=== PATIENT | female | born 1990 | race Two or more races ===

== ENCOUNTER 2024-01-27 16:09 | Outpatient (CLI) | payer OTHER | END 2024-01-27 16:10 | disposition home or self-care (01) | LOC: PRENATAL 16:09 | PROVIDERS: ATTEND Obstetrics & Gynecology Maternal & Fetal Medicine | DX: O35.9XX0 Maternal care for (suspected) fetal abnormality and damage, unspecified, not applicable or unspecified (principal); O35.3XX0 Maternal care for (suspected) damage to fetus from viral disease in mother, not applicable or unspecified; O44.02 Complete placenta previa NOS or without hemorrhage, second trimester; Z3A.22 22 weeks gestation of pregnancy ==

== ENCOUNTER → 2024-04-01 08:55 | Outpatient (CLI) | payer OTHER | END | disposition home or self-care (01) | LOC: PRENATAL 08:55 | PROVIDERS: ATTEND Obstetrics & Gynecology Maternal & Fetal Medicine | DX: O26.849 Uterine size-date discrepancy, unspecified trimester (principal); O36.8199 Decreased fetal movements, unspecified trimester, other fetus; Z3A.32 32 weeks gestation of pregnancy ==

== ENCOUNTER 2024-05-16 12:52 | Inpatient (IN) | payer OTHER ==
[~2024-05-16] VITALS: Ht 160 cm; Wt 3.2 kg
[2024-05-16 12:30] VITALS: BP 131/79
[2024-05-16] MEDS ORDERED: PRENATAL TABLE1 EAC4 PO (12:55)
[2024-05-16] MEDS ORDERED: RINGERS SOLUTION,LACTATED 1,000 ML IV SCH (13:00)
[2024-05-16 13:18] LABS: PH,URINE 6.5 (5.0-8.0); URINE APPEARANCE Clear; URINE BILIRRUBIN Negative (NEGATIVE); URINE BLOOD Negative; URINE COLOR Yellow; URINE GLUCOSE Negative (NEGATIVE); URINE KETONE 15 (NEGATIVE); URINE LEUKOCYTE Large; URINE NITRATE Negative; URINE PROTEIN 30 (NEGATIVE); URINE UROBILINOGEN 0.2 E.U./dl
[2024-05-16 13:19] LABS: URINE BACTERIA 6774.8 uL (0.0-1933); URINE EPITHELIAL CELLS 60.1 uL (0.0-38.8); URINE RBC 4.4 uL (0.0-20.8); URINE WBC 201.5 uL (0.0-23.2)
[2024-05-16 13:21] LABS: HEMATOCRIT 30.5 % (36.0-45.00); MEAN CELL VOLUME 74.4 fL (80.00-100.00); MEAN CORPUSCULAR HGB CONC 31.7 g/dl (32.0-36.0); PLATELET COUNT 458 K/uL (150-450)
[2024-05-16 13:24] LABS: HEMOGLOBIN 9.7 g/dL (12.0-15.00); MEAN CORPUSCULAR HEMOGLOBIN 23.6 pg (27.00-32.0); RED CELL DISTRIBUTION WIDTH 16.1 % (11.5-14.5)
[2024-05-16 13:40] LABS: URINE CAST 0.44 uL (0.0-1.40)
[2024-05-16 13:41] LABS: URINE YEAST FEW /hpf
[2024-05-16 13:47] LABS: ALBUMIN 2.8 gm/dL (3.4-5.0); BILIRUBIN TOTAL 0.4 mg/dL (0.3-1.2); CALCIUM 9.2 mg/dL (8.5-10.1); CREATININE SERUM 0.57 mg/dL (0.55-1.02); GFR 123.71; GLOBULINA 3.8 G/DL (2.4-3.5); INR 1.04; PARTIAL THROMBOPLASTIN TIME 23.6 SECONDS (22.0-34.0); POTASSIUM 4.34 mEq/L (3.5-5.1); PROTHROMBIN TIME 11.3 SECONDS (9.0-11.5); TOTAL PROTEIN 6.6 gm/dL (6.4-8.2)
[2024-05-16] MEDS ORDERED: OXYTOCIN 500 ML IV SCH (14:30)
[2024-05-16 15:30] VITALS: BP 148/85
[2024-05-16] MEDS ORDERED: PROMETHAZINE HCL 50 MG/ML AMPUL IV ONE (19:15)
[2024-05-16] MEDS ORDERED: MEPERIDINE HCL/PF 50 MG/ML VIAL IV ONE (19:15)
[2024-05-16 19:25] VITALS: BP 150/93
[2024-05-16] MEDS ORDERED: CEFOXITIN SODIUM 2,000 MG VIAL IV SCH (22:30)
[2024-05-16 23:00] VITALS: BP 154/89
[2024-05-17] MEDS ORDERED: MORPHINE SULFATE 4 MG/ML CARTRIDGE IV PRN (00:45)
[2024-05-17] MEDS ORDERED: OXYTOCIN 1,000 ML IV SCH (00:45)
[2024-05-17] MEDS ORDERED: ONDANSETRON HCL 2 MG/ML VIAL IV PRN (00:45)
[2024-05-17] MEDS ORDERED: MORPHINE SULFATE 4 MG/ML VIAL IV ONE ×3 (01:15→02:15)
[2024-05-17 03:17] VITALS: BP 134/80
[2024-05-17 07:05] LABS: HEMATOCRIT 27.1 % (36.0-45.00); MEAN CELL VOLUME 72.5 fL (80.00-100.00); MEAN CORPUSCULAR HGB CONC 32.8 g/dl (32.0-36.0); PLATELET COUNT 401 K/uL (150-450); RED BLOOD COUNT 3.74 M/uL (4.00-6.00); RED CELL DISTRIBUTION WIDTH 16.3 % (11.5-14.5)
[2024-05-17 07:06] LABS: HEMOGLOBIN 8.9 g/dL (12.0-15.00); MEAN CORPUSCULAR HEMOGLOBIN 23.7 pg (27.00-32.0)
[2024-05-17] MEDS ORDERED: SIMETHICONE 125 MG CAPSULE PO SCH (09:00)
[2024-05-17] MEDS ORDERED: ACETAMINOPHEN WITH CODEINE 1 UDTAB TABLET PO SCH (12:00)
[2024-05-17] MEDS ORDERED: NAPROXEN 500 MG TABLET PO PRN (12:45)
[2024-05-17] MEDS ORDERED: ACETAMINOPHEN WITH CODEINE 1 UDTAB TABLET PO PRN (14:15)
[2024-05-17 15:52] VITALS: BP 127/87
[2024-05-17] MEDS ORDERED: IRON FUM,PS/FOLIC/BCOMP,C NO.9 1 CAP CAPSULE PO SCH (17:00)
[2024-05-17] MEDS ORDERED: DOCUSATE SODIUM 100MG CAP PO SCH (17:00)
[2024-05-17] MEDS ORDERED: NAPROXEN 500 MG TABLET PO SCH (21:00)
[2024-05-17 23:42] VITALS: BP 129/82
[2024-05-18 09:37] VITALS: BP 119/84
[2024-05-18 15:56] VITALS: BP 140/80
[2024-05-18 20:11] VITALS: BP 160/80
[2024-05-18 20:57] VITALS: BP 160/69
[2024-05-19 00:04] VITALS: BP 170/93
[2024-05-19 00:17] VITALS: BP 140/79
[2024-05-19] MEDS ORDERED: NAPR500T14 PO (07:59)
[2024-05-19] MEDS ORDERED: ACETAMINOPHEN-1 EAC2 PO (07:59)
[2024-05-19] MEDS ORDERED: INTEGRA PLUS C1 EACH PO (07:59)
[2024-05-19] MEDS ORDERED: COLACE100 MG PO (07:59)
[2024-05-19 08:00] VITALS: BP 120/78
== END 2024-05-19 14:34 | disposition home or self-care (01) | DRG 788 ==
LOC: OB/GYN 12:52 → LDR 12:52 → OB/GYN 05-17 01:20
PROVIDERS: ADMIT Obstetrics & Gynecology; ATTEND Obstetrics & Gynecology
PROC: 4A1HXCZ Monitoring of Products of Conception, Cardiac Rate, External Approach (ICD-10-PCS; 2024-05-16)
PROC: 10D00Z1 Extraction of Products of Conception, Low, Open Approach (ICD-10-PCS; principal; 2024-05-17)
DX: O82 Encounter for cesarean delivery without indication (principal); O62.1 Secondary uterine inertia; Z3A.38 38 weeks gestation of pregnancy; Z37.0 Single live birth; Z20.822 Contact with and (suspected) exposure to COVID-19